=== PATIENT | male | born 1975 | race Caucasian/White ===

== ENCOUNTER 2021-07-11 14:49 | Emergency (ER) | payer OTHER, MEDICAID, SELFPAY ==
[2021-07-11 14:58] VITALS: BP 115/57; PULSE 74; RESP 16; TEMP 36.8; O2SAT 95; BMI 29.7
--- NOTE | 2021-07-11 15:31 | XR_ITS ---
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 Milder but similar changes seen in the MP and CMC joint of the great toe. No fracture or dislocation in the right forefoot. The joint spaces in the right midfoot and hindfoot are intact. No fracture or other focal bony abnormality in the midfoot or hindfoot. XR/XR foot RT min 3V* [id number] IMPRESSION: No acute abnormality.
--- NOTE | 2021-07-11 15:31 | ED_ITS ---
HPI - Extremity Injury (Lower) General: Chief Complaint: Extremity Injury, Lower Stated Complaint: Injury to Right Foot/ankle Time Seen by Provider: 07/11/21 15:03 Source: patient Mode of arrival: ambulatory Limitations: no limitations History of Present Illness: HPI Narrative: Patient is a 46-year-old male who presents to ED today for evaluation of his right foot pain. Patient tells me a few days ago he believes he stepped on something, he believes a walnut, and thinks he potentially fractured his foot. Patient tells me he is fractured the foot previously and just wants to make sure . Patient has been ambulatory on the extremity since the event. He has no other injuries or complaints at this time. He has not noticed any redness/warmth or swelling to the area. MD complaint: foot injury Onset (ago): day(s) Injury: Right: foot Place: home Severity: moderate Relieving factors: immobilization Exacerbating factors: weight bearing and palpation Context: other (stepped on walnut) Associated symptoms: Reports no associated symptoms Other symptoms: none Review of Systems Const: Denies: fever(s), chills or body aches Card: Denies: chest pain Resp: Denies: dyspnea Musc: Reports: extremity pain (R foot); Denies: neck pain, back pain, extremity swelling, joint pain, joint swelling, joint redness or joint warmth Skin/Breast: Denies: rash, skin pain, new lesions, changing lesions or changes in skin color Neuro: Denies: numbness in extremities or sensory changes Physical Exam Const: COMMON NORMALS: no acute distress, patient oriented x3, no limitations and alert GENERAL APPEARANCE: cooperative Extremity: COMMON NORMALS: normal to inspection, full ROM, capillary refill normal, no joint enlargement, no clubbing, cyanosis or edema, no calf tenderness and no pedal edema GENERAL: Yes normal exam except as noted RIGHT LOWER EXTREMITY: Yes foot & digits (TTP lateral foot/lateral plantar aspect) Neuro: COMMON NORMALS: patient oriented x3, moves all extremities, no focal motor deficits, no sensory deficits noted and gait normal SENSORIUM/ORIENTATION: Yes alert Skin: COMMON NORMALS: no rashes or lesions noted GENERAL SKIN EXAM: no rashes or lesions noted TRAUMA: no lacerations or abrasions Course Vital Signs: Vital signs: Vital Signs Temperature 98.2 F 07/11/21 14:58 Pulse Rate 74 07/11/21 14:58 Respiratory Rate 16 07/11/21 14:58 Blood Pressure 115/57 07/11/21 14:58 Pulse Oximetry 95 07/11/21 14:58 MDM - Extremity Injury (Lower) Imaging Data^: XR R foot: Radiologist's impression: [address] [id number] ReportSigned Patient: Enoc Kovacs #: [id number]: 1975Acct#:[id number]/Sex: 46 / MADM Date: 07/11/21Loc: ERRoom/Bed:Attending Dr: Ordering Provider/Ordering MD: Anastasia Galloway Date of Service: 07/11/21 Procedure(s): XR foot RT min 3V* [id number] Accession Number(s): [id number] Report Number: [id number] WS: [id number] XR foot RT min 3V* [id number] REASON FOR EXAM: injury/pain FINDINGS: 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 Milder but similar changes seen in the MP and CMC joint of the great toe. No fracture or dislocation in the right forefoot. The joint spaces in the right midfoot and hindfoot are intact. No fracture or other focal bony abnormality in the midfoot or hindfoot. XR/XR foot RT min 3V* [id number] IMPRESSION: No acute abnormality. Dictated By:Thomas Molina Jr MDSigned By:Thomas Molina Jr MDSigned Date/Time:07/11/21 1555DD/ 155 Discharge Plan Discharge Patient Disposition: Home Clinical Impression: Injury of right foot Qualifiers: Encounter type: initial encounter Qualified Code(s): S99.921A - Unspecified injury of right foot, initial encounter Condition: Stable Discharge Orders: Discharge ED (Routine); Ordered 07/11/21 Ordered By: Anastasia Galloway Coding Level of Care Code ED Technology Solutions [facility]
== END 2021-07-11 16:45 | disposition home or self-care (01) ==
PROVIDERS: Emergency Provider Physician Assistant
DX: S99.921A Unspecified injury of right foot, initial encounter (principal); W22.8XXA Striking against or struck by other objects, initial encounter
CPT/HCPCS: 73630; 99282

== ENCOUNTER 2022-02-24 12:11 | Outpatient (CLI) | payer OTHER, MEDICAID, SELFPAY ==
--- NOTE | 2022-02-24 | XR_ITS ---
WS: [id number] Left knee, 3 views weightbearing, 02/24/2022 Clinical Data: CHRONIC PAIN OF LEFT KNEE Comparison: Left knee, 11/27/2008. Findings: No fractures or dislocations are seen. The joint spaces are normal. The patella is intact. The soft t issues are unremarkable. XR/XR knee LT 3V* [id number] Impression: Negative left knee. Kellgren-Tristin Classification: grade 0 (none): definite absence of x-ray tank nges of osteoarthritis
== END 2022-02-24 12:12 | disposition home or self-care (01) ==
LOC: RADOUTREAD 02-28 12:13
PROVIDERS: Visit Provider Family Medicine
DX: M25.562 Pain in left knee (principal)
CPT/HCPCS: 73562

== ENCOUNTER 2023-01-13 11:57 | Emergency (ER) | payer MEDICARE, MEDICAID, SELFPAY ==
[2023-01-13 12:00] VITALS: BP 145/79; PULSE 95; TEMP 36.4; O2SAT 95; BMI 27.5
--- NOTE | 2023-01-13 12:15 | W.ED.DENTAL ---
HPI - Dental/Oral General: Chief complaint: Dental/Oral Stated complaint: tooth abcess Time Seen by Provider: 01/13/23 12:03 History of Present Illness: Enoc is a 47-year-old man that presents to the emergency department with complaints of dental abscess. Patient, who has poor dentition, states that he developed an abscess about 4 days ago. He usually uses antibiotics and it resolves on its own. Unfortunately, this 1 has not improved and is only worsened. Patient states that he has insurance now and he has an appointment on Sunday with his dentist but wanted to start antibiotics first. Patient takes aspirin daily and uses tobacco products but no other routine medical conditions Associated symptoms: Denies ear or mastoid pain, fever(s) or odynophagia Review of Systems General: Reports: 10 or more systems reviewed and unremarkable except in HPI and below Const: Denies: fever(s), chills, change in appetite, change in weight, fatigue or malaise Eyes: Denies: change in vision, eye discomfort, eye discharge or eye redness ENMT: Reports: mouth pain and dry mouth; Denies: throat pain, enlarged tonsils, odynophagia, hoarseness, ear or mastoid pain, ear discharge, change in hearing, tinnitus, nasal discharge, nasal congestion, post nasal drip or sinus pain Card: Denies: chest pain, palpitations, irregular heart rhythm, edema, dyspnea on exertion, orthopnea or leg pain with exertion Resp: Denies: dyspnea, productive cough, non-productive cough, wheezing, stridor or chest congestion GI: Denies: abdominal pain, nausea, vomiting, dysphagia, diarrhea, constipation, bloating, GI cramping or hematochezia : Denies: flank pain, dysuria, urinary frequency, urinary urgency, urinary hesitancy, oliguria or hematuria Musc: Denies: neck pain, back pain, extremity pain, joint pain, joint swelling, joint redness, joint warmth or muscle weakness Skin/Breast: Denies: rash, pruritus, erythema, photosensitivity or new lesions Neuro: Denies: headache(s), numbness in extremities, weakness in extremities, sensory changes, lack of coordination, difficulty walking, frequent falls, dizziness, confusion, Slurred speech present, difficulty communicating thoughts, seizure-like activity or involuntary movements Endo: Denies: polyuria, polydipsia or tired all the time Antonio/Lymph: Denies: easy bruising or easy bleeding Physical Exam Const: COMMON NORMALS: no acute distress, patient oriented x3 and alert GENERAL APPEARANCE: cooperative ORIENTATION/CONSCIOUSNESS: Yes awake, Yes oriented to person, Yes oriented to place and Yes oriented to time HENMT: COMMON NORMALS: normocephalic and atraumatic HEAD & SCALP: normocephalic and atraumatic FACE & SINUS: normal facial exam MOUTH: Normal oral and palatal mucosa present TEETH & GINGIVA: Yes abnormal tooth and associated gingiva, Yes caries, Yes gingiva abnormal, Yes poor dentition and Yes teeth discoloration TEETH & GINGIVA IMAGES: 1. Abscess, indurated without fluctuance THROAT: posterior oropharynx normal Eye: COMMON NORMALS: Equal, round and reactive pupils present, EOMs intact bilaterally, conjunctivae normal and no scleral icterus GENERAL EYE: appearance normal, both eyes and all related structures ALIGNMENT: Yes alignment normal PERIORBITAL: periorbital findings normal CONJUNCTIVA: Yes conjunctivae normal PUPIL: Yes Equal, round and reactive pupils present Neck/C-Spine: COMMON NORMALS: full ROM GENERAL: Yes normal visual inspection Lymph: LYMPHATIC: no lymphadenopathy noted Chest: COMMONS NORMALS: normal inspection of the chest Breast/axilla inspection: Yes no chest deformity, asymmetry, normal contours, no nodules, masses, tenderness Resp: COMMON NORMALS: normal respiratory effort, No retractions, No use of accessory muscles and clear to auscultation bilaterally EFFORT & INSPECTION: Yes able to speak in complete sentences and Yes symmetric chest movement AUSCULTATION: clear to auscultation bilaterally Cardio: COMMON NORMALS: regular rate, regular rhythm and Peripheral pulses 2+ throughout RATE: regular rate RHYTHM: regular rhythm PERIPHERAL PULSES: Peripheral pulses 2+ throughout GI: COMMON NORMALS: Normal to inspection, nondistended, normoactive bowel sounds present, Soft to palpation, non-tender and No hepatosplenomegaly present INSPECTION: Yes normal to inspection AUSCULTATION: Yes normoactive bowel sounds PALPATION: Yes Soft to palpation and Yes No hepatosplenomegaly present RECTAL EXAM: Yes deferred Extremity: COMMON NORMALS: normal to inspection GENERAL: Yes normal exam except as noted Neuro: COMMON NORMALS: patient oriented x3 SENSORIUM/ORIENTATION: Yes alert, Yes oriented to person, Yes oriented to place and Yes oriented to time CRANIAL NERVES: Yes CN normal except as noted Psych: COMMON NORMALS: mental status grossly normal, Normal thought process present, cooperative, activity/motor behavior normal, denies homicidal ideation and denies suicidal ideation THOUGHT PROCESS: Normal thought process present Skin: COMMON NORMALS: no rashes or lesions noted, no wounds and turgor normal GENERAL SKIN EXAM: no rashes or lesions noted and turgor normal Course Vital Signs: Vital signs: Vital Signs Temperature 97.5 F L 01/13/23 12:00 Pulse Rate 95 01/13/23 12:00 Blood Pressure 145/79 01/13/23 12:00 Pulse Oximetry 95 01/13/23 12:00 Oxygen Delivery Me thod Room Air 01/13/23 12:00 MDM - Dental/Oral Medical Decision Making Differential diagnosis includes Kraig's angina, abscess, dental caries, dental fracture, Patient was evaluated in the emergency department for dental pain. On exam he has an area measuring approximately 1 cm on the roof of his mouth that is indurated without fluctuance. It is directly behind tooth #9. Patient states he has poor dentition in general and is going to have the tooth pulled. Follow-up with the dentist on Sunday. Patient was treated here in the emergency department with Augmentin. He will be going home on prescriptions of Augmentin and Peridex. He is to follow-up with dental services as planned. Discharge Plan Discharge Patient Disposition: Home Clinical Impression: Dental abscess Condition: Stable Prescriptions: New amoxicillin-pot clavulanate 875-125 mg tablet 1 tab PO Q12H 7 Days Qty: 14 0RF Peridex 0.12 % mouthwash 15 ml buccal BID Qty: 118 0RF Discharge Orders: Discharge ED (Routine); Ordered 01/13/23 Ordered By: Millie Perdomo Referrals: Landon Cerda MD [Primary Care Provider] - Discharge Diet: Advance as tolerated Discharge Activity: Resume usual activity Patient Instructions: Dental Abscess (ED), Pain Management Activity Restrictions/Additional Instructions: Please follow-up with your dentist as planned. 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
[2023-01-13] MEDS: amoxicillin-clav 875-125 mg Tablet 1 TAB PO (12:22)
== END 2023-01-13 12:25 | disposition home or self-care (01) ==
PROVIDERS: Emergency Provider Nurse Practitioner; PCP Family Medicine
DX: K04.7 Periapical abscess without sinus (principal)
CPT/HCPCS: 99283

== ENCOUNTER 2024-01-22 10:33 | Emergency (ER) | payer MEDICARE, MEDICAID, SELFPAY ==
[2024-01-22 10:43] VITALS: BP 127/82; PULSE 84; RESP 16; TEMP 36.3; O2SAT 92
--- NOTE | 2024-01-22 10:44 | ED_ITS ---
HPI - Dental/Oral 2 General: Chief complaint: Dental/Oral Stated complaint: tooth pain Time Seen by Provider: 01/22/24 10:40 Source: patient Mode of arrival: ambulatory Limitations: no limitations History of Present Illness: Patient is a 48-year-old male here for complaints of dental pain and some minor swelling to the left side of his face. Patient states he is already scheduled appoint with Dr. Lima and this appointment is scheduled for 01/29 next week. He states usually they require him to be on antibiotics prior to any type of extraction/procedure thus is asking for antibiotics currently. No fevers. No systemic symptoms. He is eating and drinking normally. He has no difficulty swallowing, controlling secretions, or breathing. MD Complaint: tooth pain Teeth map: 1. severe widespread periodontal disease Onset (ago): day(s) Duration: constant Context: history of dental caries and poor dental care Associated symptoms: Denies fever(s) Treatment prior to arrival: oral analgesic Review of Systems 2 Const: Denies: fever(s), chills, body aches, fatigue or malaise ENMT: Reports: dental pain; Denies: nasal discharge, nasal congestion or sinus pain Card: Denies: chest pain Resp: Denies: dyspnea GI: Denies: nausea or vomiting Musc: Denies: neck pain Neuro: Denies: headache(s) Physical Exam 2 Const: COMMON NORMALS: no acute distress, patient oriented x3, no limitations, alert and well nourished HENMT: FACE & SINUS: other (minor L facial swelling; no abscess ) MOUTH: N ormal oral and palatal mucosa present and lip normal TEETH & GINGIVA: Yes caries, Yes poor dentition and Yes other (severe widespread dental disease) T HROAT: posterior oropharynx normal and tonsils normal Resp: COMMON NORMALS: normal respiratory effort and clear to auscultation bilaterally AUSCULTATION: clear to auscultation bilaterally Cardio: COMMON NORMALS: regular rate and regular rhythm RATE: regular rate RHYTHM: regular rhythm Neuro: COMMON NORMALS: patient oriented x3 and CN's II-XII intact bilaterally SENSORIUM/ORIENTATION: Yes alert Course 2 Vital Signs: Vital signs: Vital Signs Temperature 97.4 F L 01/22/24 11:01 Pulse Rate 87 01/22/24 11:01 Respiratory Rate 16 01/22/24 11:01 Blood Pressure 125/86 01/22/24 11:01 Pulse Oximetry 96 01/22/24 11:01 Oxygen Delivery Me thod Room Air 01/22/24 10:46 MDM - Dental/Oral Medical Decision Making Patient will be placed on antibiotics. Return to ED precautions given. Otherwise follow-up with dentist as scheduled next week. Differential Diagnosis Likely gingival abscess, dental caries, toothache and dental abscess No radiology studies performed this visit Discharge Plan Discharge Patient Disposition: Home Clinical Impression: Dental caries, Toothache Condition: Stable Prescriptions: New penicillin V potassium 500 mg tablet 500 mg PO Q8H 7 Days Qty: 21 0RF No Action Peridex 0.12 % mouthwash 15 ml buccal BID Qty: 118 0RF Discharge Orders: Discharge ED (Routine); Ordered 01/22/24 Ordered By: Anastasia Galloway Referrals: Landon Cerda MD [Primary Care Provider] - Patient Instructions: Toothache (ED), Dental Abscess Coding Level of Care Code ED 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
[2024-01-22 10:46] VITALS: BP 127/82; PULSE 90; RESP 16; O2SAT 95
[2024-01-22 11:01] VITALS: BP 125/86; PULSE 87; RESP 16; TEMP 36.3; O2SAT 96
== END 2024-01-22 11:03 | disposition home or self-care (01) ==
PROVIDERS: Emergency Provider Physician Assistant; PCP Family Medicine
DX: K02.9 Dental caries, unspecified (principal)
CPT/HCPCS: 99283